=== PATIENT | female | born 1945 | race Caucasian/White ===

== ENCOUNTER 2020-03-31 06:43 | Outpatient (CLI) | payer MEDICARE, BC ==
[~2020-03-31] VITALS: Ht 165.1 cm; Wt 54.4 kg
[2020-03-31] MEDS ORDERED: albuterol 2.5 MG/3 ML nebule NEB ONE (08:10)
== END 2020-03-31 23:59 | disposition home or self-care (01) ==
LOC: RT 06:43
PROVIDERS: ATTEND Internal Medicine Pulmonary Disease
DX: J45.991 Cough variant asthma (principal)
CPT/HCPCS: 94060; 94727; 94729; 94760

== ENCOUNTER 2023-09-14 05:32 | Day surgery (SDC) | payer MEDICARE, BC ==
[2023-09-10 15:48] LABS: BASOPHILS % (AUTO) 0.2 % (0-1); EOSINOPHILS # (AUTO) 0.4 X10'3 (0-0.9); EOSINOPHILS % (AUTO) 3.9 % (0-6); LYMPHOCYTES # (AUTO) 2.3 X10'3 (1.1-4.8); LYMPHOCYTES % (AUTO) 23.6 % (21-51); MEAN CORPUSCULAR HEMOGLOBIN 30.4 PG (27.0-31.0); MEAN CORPUSCULAR HGB CONC 33.2 g/dL (33.0-36.5); MEAN CORPUSCULAR VOLUME 91.7 FL (78-98); MEAN PLATELET VOLUME 6.8 FL (7.4-10.4); MONOCYTES # (AUTO) 1.1 X10'3 (0-0.9); MONOCYTES % (AUTO) 11.3 % (2-12); NEUTROPHILS # (AUTO) 5.9 X10'3 (1.8-7.7); PRE OP HEMATOCRIT 45.1 % (35.0-45.0); PRE OP PLATELET COUNT 234 X10'3 (140-440); PRE OP WHITE BLOOD COUNT 9.7 10'3 (4.8-10.8); RED BLOOD COUNT 4.93 X10'6 (4.20-5.60); RED CELL DISTRIBUTION WIDTH 13.4 % (11.5-14.5)
[2023-09-10 16:06] LABS: ALBUMIN 3.9 G/DL (3.4-5.0); ALBUMIN/GLOBULIN RATIO 1.2 (1.1-1.5); ALKALINE PHOSPHATASE 82 IU/L (46-116); BLOOD UREA NITROGEN 12 MG/DL (7-18); BUN/CREATININE RATIO 17.6 (10.0-20.0); CALCIUM 8.7 MG/DL (8.5-10.1); CHLORIDE 103 MMOL/L (99-107); CREATININE 0.68 MG/DL (0.40-0.90); PRE OP ALT 20 U/L (30-65); PRE OP ANION GAP 8 (8-16); PRE OP AST 22 U/L (10-37); PRE OP BILIRUB, TOTAL 0.4 MG/DL (0.0-1.0); PRE OP GLUCOSE 103 MG/DL (70-104); PRE OP POTASSIUM 4.4 MMOL/L (3.4-5.1); PRE OP SODIUM 139 MMOL/L (135-145); TOTAL CARBON DIOXIDE 28.2 MMOL/L (24-32); TOTAL PROTEIN 7.1 G/DL (6.4-8.2); eGFR 83 ML/MIN
[2023-09-14] VITALS (10 sets, daily range): BP systolic 133–162; BP diastolic 73–93; PULSE 64–94; RESP 12–18; TEMP 97.7; O2SAT 97–100
[~2023-09-14] VITALS: Ht 162.6 cm; Wt 55.9 kg
[~2023-09-14 05:32] MED LIST: ALBU6.7H14 INH; ALBUTEROL NEBS; ASCO100031 PO; ASPI81TA52 PO; BIOT1TAB22 PO; BUPR-564 PO; CALC600T14 PO; CHOL200059 PO; CLOB15CR4 TOP; DENO60DI SUBCUT; DICL100G59 TOP; DOXY25TA58 PO; FLUT1BLS13 INH; LORA10TA7 PO; MULT-1074 PO; NAPR220T67 PO; OMEP40CA21 PO; TRIA454O TOP
[2023-09-14] MEDS: famotidine 20mg tablet PO ONE (06:00)
[2023-09-14] MEDS: ringers solution, lacted 1,000 ML IV SCH (06:02)
[2023-09-14] MEDS ORDERED: sevoflurane 250ml liquid IH ONE (07:28)
[2023-09-14] MEDS ORDERED: neostigmine methylsulfate 1 MG/ML 10ml vial ONE (07:28)
[2023-09-14] MEDS ORDERED: glycopyrrolate 0.2mg/ml inj ONE (07:28)
[2023-09-14] MEDS ORDERED: fentaNYL/PF 50MCG/1 ML 2ML syringe ONE (07:37)
[2023-09-14] MEDS ORDERED: midazolam 1 mg/ML 2ml injection ONE (07:39)
[2023-09-14] MEDS ORDERED: LIDOcaine 2% (20mg/ml) 5ml vial ONE (07:59)
[2023-09-14] MEDS ORDERED: dexamethasone sod phosphate 4mg/ml inj. ONE (07:59)
[2023-09-14] MEDS ORDERED: rocuronium 10mg/ml inj IV ONE (07:59)
[2023-09-14] MEDS ORDERED: ondansetron/PF 4mg/2ml inj ONE (07:59)
[2023-09-14] MEDS ORDERED: propofol inj 20 ML IV ONE (07:59)
[2023-09-14] MEDS ORDERED: ondansetron/PF 4mg/2ml inj IV PRN (08:45)
[2023-09-14] MEDS ORDERED: morphine 4 MG/ML inj SYRINge IV PRN (08:45)
[2023-09-14] MEDS ORDERED: meperidine/PF 25mg/ml syringe IV PRN ×3 (08:45)
[2023-09-14] MEDS ORDERED: labetalol 20mg/4ml (5mg/ml) syringe IV PRN (08:45)
[2023-09-14] MEDS ORDERED: hydrALAZINE 20mg/ml inj. IV PRN (08:45)
[2023-09-14] MEDS ORDERED: morphine 2 MG/ML inj. syringe IV PRN (08:45)
[2023-09-14] MEDS ORDERED: ringers solution, lacted 1,000 ML IV SCH (08:45)
[2023-09-14] MEDS ORDERED: acetaminophen 1,000mg/100ml IV 100 ML IV ONE (08:45)
[2023-09-14] MEDS ORDERED: proCHLORperazine 10 MG/2 ml inj IV PRN (08:45)
== END 2023-09-14 09:42 | disposition home or self-care (01) ==
LOC: PAS 05:32
PROVIDERS: ATTEND Internal Medicine Critical Care Medicine
DX: R91.8 Other nonspecific abnormal finding of lung field (principal); J98.4 Other disorders of lung; J44.9 Chronic obstructive pulmonary disease, unspecified; K21.9 Gastro-esophageal reflux disease without esophagitis; Z72.89 Other problems related to lifestyle; Z87.891 Personal history of nicotine dependence; Z86.14 Personal history of Methicillin resistant Staphylococcus aureus infection; Z88.2 Allergy status to sulfonamides; Z91.040 Latex allergy status; Z79.899 Other long term (current) drug therapy
CPT/HCPCS: 31624; 31628; 31629; 31653; 36415; 71045; 71250; 80053; 82948; 85025; 87015; 87070; 87077; 87102; 87116; 87185; 87206; 93005; 94760; J1100; J2250; J2405; J2704; J2710; J3010; J3490; J7120; Z7506; Z7508; Z7512; 31622; 31625; 31626; 31627; 31654; 88173; 88305; A4618